=== PATIENT | female | born 1980 | race Caucasian/White ===

== ENCOUNTER 2017-11-03 10:41 | Emergency (ER) | payer MEDICARE, MEDICAID ==
--- OUTSIDE RECORDS SUMMARY | 2017-11-03 10:56 | XMS REPORT ---
:1980 External Reference #:[id number] Author Organization [facility] Address [address] [facility] [place] [address] [place] [address] Phone [phone] Care Team Providers Name Role Phone Jessika Klein MD Primary Care Physician Unavailable Payers Type Date Identification Numbers Payment Provider Subscriber Medicare Primary Policy Number: [id number] Medicare Aakashslime Martell PayID: [id number] [address] [place] [address] [facility] Policy Number: [id number] Medicaid Aakash Martell Group Name: 1 1 [address] PayID: [id number] [place] [address] Commercial Effective: Policy Number: [employer] Aakash Martell 2011 [id number] Medicaid Expires: 2013 PayID: [id number] [address] [address] [place] [address] Problems Date Description Provider Status Onset: 06/19/2011 Tobacco user Bela Villavicencio M.D. 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 Active Onset: 04/22/2012 Allergic rhinitis Gloria Griffiths M.D. Active Onset: 04/22/2012 Acne Gloria Griffiths M.D. Active Onset: 04/22/2012 Herpes simplex Gloria Griffiths M.D. Active Onset: 04/21/2014 Insomnia Rajesh Wood M.D. Active Onset: 04/21/2014 Posttraumatic stress disorder Rajesh Wood M.D. Active Onset: 08/04/2014 Attention deficit hyperactivity Rajesh Wood M.D. Active disorder Family History Date Family Member(s) Problem(s) Comments General non-contibutory Father non contributory Mother non contributory Social History Type Date Description Comments Marital Status Single ETOH Use Rarely consumes liquor ETOH Use 3 /yr Smoking Patient is a current smoker, smokes 1 1/2 ppd every day Recreational Drug Use Denies Drug Use Exercise Type/Frequency Exercises regularly Walks regularly General Hx Text 3 years of college Personal Habits Text vegetarian Allergies, Adverse Reactions, Alerts Date Description Reaction Status Severity Comments 06/19/2011 Erythromycin Rash active 06/19/2011 Bactrim Rash active 10/02/2011 Latex "red itch" active pt reported 07/02/2013 Azithromycin Urticaria, Malaise active 07/02/2013 Hydrocodone active 07/18/2015 Prednisone active Severe pain Medications Medication Date Status Form Strength Qnty SIG Indications Ordering Provider Modafinil 10/08 Active Tablets 200mg 30tab 1 po daily s Varn, N.P. Fexofenadine HCL 02/12 Active Tablets 180mg 30tab Take 1 s Tablet By Varn, Mouth N.P. Every Day TENS Unit Pads 09/04 Active 2"X 2" 60uni Apply to ts area prn Varn, pain. N.P. Gabapentin 04/23 Active Capsules 300mg 60cap Take One s Capsule By Varn, Mouth N.P. Twice A Day Fluconazole 09/28 Active Tablets 150mg 2tabs take 1 tablet by Varn, mouth, august N.P. repeat in 3 days as needed Azelastine HCL 07/17 Active Solution 0.1% 30ml 2 Teri (Nasal) inhalation Varn, s in each N.P. nostril twice daily Azelastine HCL 07/17 Active Solution 0.05% 6ml 1 drop in (Ophthalmic) each eye Varn, twice a N.P. day Multivitamin 07/17 Active Chewtabs 60uni 2 by mouth Teri Gummies Adult ts daily Varn, N.P. Montelukast 07/17 Active Tablets 10mg 30tab Take 1 s Tablet By Varn, Mouth N.P. Every Day Ibuprofen 03/03 Active Tablets 800mg 90tab 1 by mouth R68.84 s every 8 Varn, hours as N.P. needed for pain Denavir 03/03 Active Cream 1% 30.0u apply B00.2 nits three Varn, times N.P. daily as needed Up&Up Adult 01/10 Active Gummy 150un Chew Two Vitamin its Gummies Varn, Dietar Daily N.P. TENS Unit 01/06 Active 1unit dx code: s 723.1 Varn, m54.5 N.P. Nasonex 04/20 Active Suspension 50mcg/Act 1Mon 1 spray osiel each Varn, side every N.P. day Tretinoin 04/20 Active Cream 0.025% 20uni apply as ts directed Mupirocin 03/01 Active Ointment 2% 22gm apply once L08.9 daily to Varn, rash N.P. Tizanidine HCL 01/25 Active Tablets 4mg 30tab Take 1 s Tablet By Varn, Mouth N.P. Every 8 Hours as Needed Zolpidem 12/03 Active Tablets ER 6.25mg 30tab one by Tartrate s mouth at . [facility], bedtime as M.D. needed Mirena 07/15 Active IUD 20mcg/24HR 1unit implant s Varn, N.P. Klonopin Active Tablets 1mg Unknown Viibryd Active Tablets 40mg take 1 tab Unknown every in the morning after starter pack finished not taking Liothyronine Active Tablets 50mcg Unknown Sodium Tramadol HCL Active Tablets 50mg 90tab take 1 s tablet by Varn, mouth N.P. every 8 hours as needed for pain Valtrex Active Tablets 1gm 30tab Take 2 B00.89 s Tabs By Varn, Mouth And N.P. Repeat In 12 Hours as Needed Bupropion HCL ER 00/00 Active Tablets ER 300mg 1 by mouth F32.9 Unknown (XL) /0000 24HR every day Prazosin HCL 00 Active Capsules 1mg F32.9 Unknown /0000 Amphetamine-Dext 0000 Active Caps ER 30mg one by F90.0 Unknown roamphet ER /0000 24HR mouth every in the morning Amphetamine-Dext 00 Active Tablets 10mg 1 po daily F90.0 Unknown roamphetamine /0000 Cetirizine HCL 08/26 Hx Tablets 10mg 30tab 1 by mouth s every day Varn, - N.P. 10/08 Ensure Complete 02/12 Hx Liquid 30uni 1 daily in [facility] [employer] Shake ts addition Varn, - to usual N.P. 10/08 Fexofenadine HCL 11/02 Hx Tablets 180mg 30tab 1 by mouth s every day Varn, - N.P. 08/26 Sudafed 24 Hour 11/02 Hx Tablets ER 240mg 30tab one by 24HR s mouth Varn, - daily N.P. 10/08 TENS Unit Pad 07/17 Hx 4"X 6" 8unit apply 1 M46.1 Butterfly s pad to Varn, - Shape affected N.P. 09/04 area needed TENS Replacement 04/12 Hx 12uni Apply with Teri Pads ts TENS unit Varn, - and use N.P. 05 prn. Dx Code 723.1 Fexofenadine 03/03 Hx Tablets ER 180-240mg 30tab one by Teri HCL/Pseudoephedr 24HR s mouth Varn, ine HCL ER - daily N.P. 02/05 Fluconazole 12/02 Hx Tablets 150mg 2tabs one by [place] mouth august JYOTSNA Ahumada - repeat in 12/07 3 days needed Adderall 04/13 Hx Tablets 15mg 20tab 1 by mouth 314.01 s twice a SK. Wood, - day code b M.D. 01/16 Tizanidine HCL 01/25 Hx Tablets 4mg 30tab take 1 724.5 s tablet by Varn, - mouth N.P. 01/25 every hours as needed Adderall XR 01/25 Hx Caps ER 30mg 31cap 1 by mouth 314.01 24HR s every day Varn, - N.P. 04/13 Tizanidine HCL 01/03 Hx Tablets 4mg 30tab take 1 724.5 s tablet by Varn, - mouth N.P. 01/10 every hours as needed Adderall XR 01/03 Hx Caps ER 25mg 30cap One po q 314.01 24HR s am Vartanya, - N.P. 01/25 Zovirax 11/13 Hx Cream 5% 5gm use as directed Gloria Griffiths M.D. 10/08 Gentamicin 07/22 Hx Cream 0.1% 15gm Apply 1 706.1 applicatio Gloria Griffiths M.D. 08/28 topically to affected area twice daily for acne treatment Paragard 06/24 Hx IUD T380a Gloria Intrauterine Neal Griffiths M.D. Contraceptive 08/28 T380a /2012 Retin-A 04/22 Hx Cream 0.025% 45gm Apply 1 706.1 applicatio Gloria Griffiths M.D. 07/22 topically to affected area daily in the evening to face for acne Nasonex 03/31 Hx Suspension 50mcg/Act 1unit 2 sprays 477.9 s to each Aye - nostril M.D. 05/26 Vitamin D3 01/19 Hx Capsules 1000Unit 30cap Take 1 s tablet Aye, - daily M.D. 01/19 Vitamin D 01/19 Hx Capsules 96126Qcap 6caps take 1 tablet Gloria Griffiths weekly for M.D. 04/22 6 Flunisolide 01/19 Hx Solution 29mcg/Act 25ml Inhale 2 (0.025%) sprays Gloria Griffiths into M.D. 03/31 nostril /2011 twice daily when needed for hay fever Vitamin D3 01/14 Hx Capsules 1000Unit 30cap Take 1 s tablet Aye, - daily M.D. 01/15 Fluticasone 01/08 Hx Suspension 50mcg/Act 16gm inhale 2 Gloria sprays Aye, - into M.D. 01/19 nostril times a day Loratadine 01/08 Hx Tablets 10mg 30tab 1 po qd 477.9 Gloria s Gloria Griffiths M.D. 01/14 Bactroban 01/02 Hx Ointment 2% 22gm apply 1 709.9 applicatio Aye, - n M.D. 02/19 topically to affected area 3 times a day for impetigo Fexofenadine HCL 01/02 Hx Tablets 60mg 30tab Take 1 477.9 s tablet Aye, - daily when M.D. 04/01 needed allergies Nicotine 06/18 Hx Lozenges 2mg 120un as needed 305.1 Bela Polacrilex its for Villavicencio, - cravings M.D. 05/26 Multivitamins Hx Tablets 30tab 1 po qd Unknown /0000 s - 04/20 Vyvanse Hx Capsules 60mg 30cap 1 po qd Unknown /0000 s - 01/25 Ambien CR Hx Tablets ER 12.5mg 30tab 1 qhs prn Unknown /0000 s - 12/03 Domenica-D Hx 1 po qd 477.9 Unknown /0000 - 01/02 Naproxen Hx Tablets 500mg 60tab 1 po bid Unknown /0000 s prn - 04/22 Denavir Hx Cream 1% 15gm apply tid Gloria prn Gloria Griffiths M.D. 11/13 Nasonex Hx Suspension 50mcg/Act 1unit 2 sprays Gloria / s to each Aye, - nostril M.D. 01/08 Strattera Hx Capsules 40mg 30cap 2 tab po Unknown /0000 s every am - 04/22 Valtrex 00/00 Hx Tablets 500mg 24tab Take 1 054.79 Gloria /0000 s tablet Aye, - twice M.D. 02/19 daily for 3 days as needed Spironolactone 00 Hx Tablets 25mg 60tab Take 2 Unknown /0000 s tablets - daily 06/24 Domenica-D / Hx 30uni 1 po qd 477.9 Gloria /0000 ts Aye, - M.D. 08/28 Klonopin Hx Tablets 0.5mg 31tab 1 by mouth Teri /0000 [facility], - at bedtime N.P. 04/13 as needed Zantac Hx Tablets 150mg 60tab 1 po bid Unknown /0000 s - 07/15 Minocycline HCL 00 Hx Capsules 100mg 60cap take two Unknown /0000 s daily - 07/15 Amoxicillin Hx Capsules 500mg 12cap tid Unknown /0000 s - 01/16 Ibuprofen Hx Capsules 200mg as needed Unknown /0000 - 01/16 Viibryd Hx Tablets 20mg 2 by mouth Unknown /0000 every day - 07/15 Levocetirizine Hx Tablets 5mg Unknown Dihydrochloride /0000 - 03/03 Vyvanse 00 Hx Capsules 40mg 1 by mouth Unknown /0000 each - morning 10/08 Modafinil 00 Hx Tablets 100mg 1 by mouth Unknown /0000 every day - 10/08 Montelukast 00 Hx Tablets 10mg 1 by mouth Unknown Sodium /0000 every day - 07/15 Immunizations CPT Code Status Date Vaccine Lot # [id number] Given 03/03/2015 Tdap - Tetanus/Diptheria/Acellular Pertussis [id number] Given 01/16/2015 Influenza Virus Vaccine, Quadrivalent, Split, [id number] Preservative Free [id number] Given 01/25/2014 Influenza Virus Vaccine, Quadrivalent, Split, [id number] Preservative Free 26137 Given 02/19/2013 Flu Vaccine Split Virus Preservative Free For [id number] Indiv 3Yr Older [id number] Given 01/03/2012 Fluzone Vaccine [id number] 71991 Given 02/18/2011 Influenza Virus 3Yrs & Over [id number] Given 06/18/1985 Tdap - Tetanus/Diptheria/Acellular Pertussis Vital Signs Date Vital Result Comment 10/08/2017 Height 64 inches 5'4" Weight 124.50 lb Heart Rate 82 /min BP Systolic 118 mmHg BP Diastolic 82 mmHg O2 % BldC Oximetry 100 % BMI (Body Mass Index) 21.4 kg/m2 07/16/2016 Height 64 inches 5'4" Weight 126.00 lb Heart Rate 101 /min BP Systolic Sitting 110 mmHg BP Diastolic Sitting 60 mmHg Respiratory Rate 18 /min Pain Level 5 All over O2 % BldC Oximetry 97 % BMI (Body Mass Index) 21.6 kg/m2 01/26/2016 Weight 119.00 lb Heart Rate 90 /min BP Systolic Sitting 118 mmHg BP Diastolic Sitting 74 mmHg Respiratory Rate 16 /min Body Temperature 97.0 F O2 % BldC Oximetry 98 % 01/16/2016 Height 64 inches 5'4" Weight 122.25 lb Heart Rate 54 /min BP Systolic Sitting 128 mmHg BP Diastolic Sitting 76 mmHg Respiratory Rate 16 /min O2 % BldC Oximetry 98 % BMI (Body Mass Index) 21.0 kg/m2 08/18/2015 Height 63.25 inches 5'3.25" Weight 126.00 lb Heart Rate 96 /min BP Systolic Sitting 130 mmHg BP Diastolic Sitting 84 mmHg Respiratory Rate 15 /min Body Temperature 98.0 F O2 % BldC Oximetry 97 % BMI (Body Mass Index) 22.1 kg/m2 07/18/2015 Height 63.25 inches 5'3.25" Weight 123.50 lb Heart Rate 98 /min BP Systolic Sitting 144 mmHg BP Diastolic Sitting 98 mmHg Body Temperature 98.2 F O2 % BldC Oximetry 98 % BMI (Body Mass Index) 21.7 kg/m2 03/03/2015 Weight 128.00 lb Heart Rate 109 /min BP Systolic Sitting 118 mmHg BP Diastolic Sitting 70 mmHg Body Temperature 96.9 F O2 % BldC Oximetry 96 % 02/09/2015 Height 64 inches 5'4" Weight 133.00 lb Heart Rate 82 /min BP Systolic Sitting 126 mmHg BP Diastolic Sitting 72 mmHg Respiratory Rate 14 /min O2 % BldC Oximetry 95 % BMI (Body Mass Index) 22.8 kg/m2 01/16/2015 Height 64 inches 5'4" Weight 133.50 lb Heart Rate 96 /min BP Systolic 133 mmHg BP Diastolic 92 mmHg Body Temperature 98.6 F O2 % BldC Oximetry 100 % BMI (Body Mass Index) 22.9 kg/m2 08/04/2014 Height 64 inches 5'4" Weight 136.00 lb Heart Rate 116 /min BP Systolic Sitting 120 mmHg BP Diastolic Sitting 60 mmHg Respiratory Rate 18 /min O2 % BldC Oximetry 98 % BMI (Body Mass Index) 23.3 kg/m2 05/16/2014 Weight 138.00 lb Heart Rate 86 /min BP Systolic Sitting 100 mmHg BP Diastolic Sitting 56 mmHg Body Temperature 97.2 F 04/21/2014 Height 64 inches 5'4" Weight 133.00 lb Heart Rate 99 /min BP Systolic Sitting 127 mmHg BP Diastolic Sitting 58 mmHg Respiratory Rate 18 /min O2 % BldC Oximetry 98 % BMI (Body Mass Index) 22.8 kg/m2 Neck Circumference in inches 12 04/13/2014 Height 63.5 inches 5'3.50" Weight 133.00 lb Heart Rate 72 /min BP Systolic Sitting 118 mmHg BP Diastolic Sitting 70 mmHg Body Temperature 97.0 F BMI (Body Mass Index) 23.2 kg/m2 03/30/2014 Height 63.5 inches 5'3.50" Weight 133.50 lb Heart Rate 68 /min BP Systolic Sitting 102 mmHg BP Diastolic Sitting 60 mmHg Body Temperature 98.1 F O2 % BldC Oximetry 92 % BMI (Body Mass Index) 23.3 kg/m2 03/01/2014 Height 63.75 inches 5'3.75" Weight 135.50 lb Heart Rate 92 /min BP Systolic Sitting 114 mmHg BP Diastolic Sitting 68 mmHg Body Temperature 98.4 F O2 % BldC Oximetry 98 % BMI (Body Mass Index) 23.4 kg/m2 02/15/2014 Weight 137.00 lb Heart Rate 76 /min BP Systolic Sitting 108 mmHg BP Diastolic Sitting 60 mmHg Body Temperature 98.4 F O2 % BldC Oximetry 98 % 01/25/2014 Weight 137.00 lb Heart Rate 82 /min BP Systolic Sitting 130 mmHg BP Diastolic Sitting 74 mmHg 01/03/2014 Weight 137.00 lb Heart Rate 78 /min BP Systolic Sitting 120 mmHg BP Diastolic Sitting 76 mmHg Body Temperature 97.2 F 12/03/2013 Weight 134.00 lb Heart Rate 78 /min BP Systolic Sitting 116 mmHg BP Diastolic Sitting 78 mmHg Body Temperature 97.9 F 05/26/2013 Weight 138.50 lb Heart Rate 80 /min BP Systolic 132 mmHg BP Diastolic 78 mmHg 02/19/2013 Weight 133.50 lb Heart Rate 88 /min BP Systolic Sitting 120 mmHg BP Diastolic Sitting 76 mmHg 08/28/2012 Weight 131.00 lb Heart Rate 90 /min BP Systolic Sitting 132 mmHg BP Diastolic Sitting 90 mmHg 07/22/2012 Height 63.50 inches 5'3.50" Weight 129.00 lb Heart Rate 94 /min BP Systolic Sitting 104 mmHg BP Diastolic Sitting 68 mmHg BMI (Body Mass Index) 22.5 kg/m2 06/24/2012 Height 63.50 inches 5'3.50" Weight 120.25 lb Heart Rate 90 /min BP Systolic Sitting 120 mmHg BP Diastolic Sitting 76 mmHg BMI (Body Mass Index) 21.0 kg/m2 04/22/2012 Height 63.50 inches 5'3.50" Weight 120.00 lb Heart Rate 88 /min BP Systolic Sitting 120 mmHg BP Diastolic Sitting 80 mmHg BMI (Body Mass Index) 20.9 kg/m2 03/18/2012 Height 63.50 inches 5'3.50" Weight 121.00 lb Heart Rate 68 /min BP Systolic Sitting 114 mmHg BP Diastolic Sitting 60 mmHg BMI (Body Mass Index) 21.1 kg/m2 01/03/2012 Height 63.50 inches 5'3.50" Weight 123.00 lb Heart Rate 64 /min BP Systolic Sitting 120 mmHg BP Diastolic Sitting 76 mmHg BMI (Body Mass Index) 21.4 kg/m2 10/02/2011 Height 63.50 inches 5'3.50" Weight 122.00 lb Heart Rate 66 /min BP Systolic Sitting 112 mmHg BP Diastolic Sitting 60 mmHg BMI (Body Mass Index) 21.3 kg/m2 06/19/2011 Height 63.50 inches 5'3.50" Weight 125.00 lb Heart Rate 64 /min BP Systolic Sitting 112 mmHg L BP Diastolic Sitting 68 mmHg L BMI (Body Mass Index) 21.8 kg/m2 Results Test Date Test Result H/L Range Note Laboratory test 08/18/2015 Cytology SEE RESULT BELOW 1 finding GC/Chlamydia 08/18/2015 Chlamydia Negative Negative Amplified Rna trachomatis Rna Neisseria gonorrhoeae (GC) Rna Negative Negative Laboratory test finding 08/18/2015 HPV Rna Ww/Reflex Negative Negative 2 Genotype CBC Auto Diff 04/02/2012 White Blood Count 8.6 10^3/uL 4.8-10.8 Red Blood Count 4.06 10^6/uL 4.0-5.4 Hemoglobin 12.4 g/dL 12.0-16.0 Hematocrit 37 % 35-47 Mean Corpuscular Volume 91 fL 80-97 Mean Corpuscular Hemoglobin 31 pg 27-31 Mean Corpuscular HGB Conc 33 g/dL 31-36 Red Cell Distribution Width 13 % 10.5-15 Platelet Count 241 10^3/uL 150-450 Mean Platelet Volume 9 um3 7.4-10.4 Abs Neutrophils 5.1 10^3/uL 1.5-7.7 Abs Lymphocytes 2.5 10^3/uL 1.0-4.8 Abs Monocytes 0.5 10^3/uL 0-0.8 Abs Eosinophils 0.3 10^3/uL 0-0.6 Abs Basophils 0.1 10^3/uL 0-0.2 Abs Nucleated RBC 0 10^3/uL Granulocyte % 59.6 % 38-83 Lymphocyte % 29.3 % 25-47 Monocyte % 6.2 % 1-9 Eosinophil % 3.9 % 0-6 Basophil % 1.0 % 0-2 Nucleated Red Blood Cells % 0 Laboratory test finding 04/02/2012 Ferritin 13 ng/mL 11-307 Iron & Iron Binding Capacity 04/02/2012 Iron 127 UG/ML 28-170 Unsaturated Iron Binding 255 g/dL Total Iron Binding Capacity 382 g/dL 250-450 Transferrin 273.1 % Iron Saturation 33 % 15-55 Laboratory test finding 04/02/2012 Beta HCG Quantitative < 2.1 MIU/ML 0.0 -5.0 3 Laboratory test finding 01/03/2012 TSH 0.58 MIU/ML 0.34-5.60 CBC Auto Diff 01/03/2012 White Blood Count 8.9 CUMM 4.8-10.8 Red Cell Count 3.86 CUMM Low 4.2-5.4 Hemoglobin 12.1 g/dL 12.0-16.0 Hematocrit 36 % 35-47 Mean Corpuscular Volume 92 um3 79-97 Mean Corpuscular Hemoglob 31 pg 27-31 Mean Corpuscular HGB Cone 34 g/dL 32-36 Redcell Distribution WDTH 12 % 10.5-15 Platelet Count 244 CUMM 150-450 Mean Platelet Volume 8.9 um3 7.4-10.4 Gran % 74.1 % 38-83 Lymph % 17.8 % Low 20-45 Mononuclear % 4.5 % 1-9 Eosinophil % 2.9 % 0-6 Basophil % 0.7 % 0-2 Abs Lymphs 1.6 1.0-4.8 Abs Mononuclear 0.4 0-0.8 Absolute Neutrophil Count 6.6 1.5-7.7 Abs Eosinophils 0.3 0-0.6 Abs Basophils 0.1 0-0.2 Vitamin D, 25 Hydroxy 01/03/2012 25-Hydroxy Vitamin D2 6.9 ng/mL () 25-Hydroxy Vitamin D3 22 ng/mL () 25-Hydroxy Vitamin D Total 29 ng/mL () 4 1 SEE RESULT BELOW Name: AAKASH MARTELL V : [address]: Teri Grimm NP Acct: [id number] Unit: [id number] AGE: 35 Location: [facility] Re08/18/15 SEX: F Status: REG REF SPEC: [id number] MARI: 08/18/15-16[address] [facility] DR: Teri Grimm NP REQ: [id number] RECD: 08/18/15 STATUS: SOUT _ ORDERED: IMAGE ANALYSIS, HPV/Thin Prep, HPV 16/18 GENE COMMENTS: [id number] FINAL DIAGNOSIS Negative for Intraepithelial lesion or Malignancy A. Ectocervical/Endocervical Specimen Adequacy: Satisfactory of evaluation Transformation zone component identified Patient Information: HPV: High risk HPV RNA testing regardless of pap results. HPV 16/18 Genotype Reflex Actual Specimen Date: 08/18/15 LMP If Unknown: 2 weeks ago spotting ?: N Post Menopausal?: N Hysterectomy?: N Previous Abnormal Pap Smears?:Y If Yes, enter Diagnosis: 2006, patient unsure what the abnormality was. Date Time Test Result Flag (u) Normal Range 08/18/15 1640 HPV RNA RFLX GE Negative Negative The high-risk HPV types detected by the assay include: 16, 18, 31, 33, 35, 39, 45, 51, 52, 56, 58, 59, 66, and 68. Signed (signature on file) TERA Taylor(ASCP) 08/20 1321 This Pap test was evaluated with the assistance of the Results [employer] Test Imaging System. Due to cytologic findings at the emblem maker microscope, comprehensive manual rescreening by a Addictions Counselor may be required. The Pap Smear is a screening test designed to aid in the detection of premalignant and malignant conditions of the uterine cervix. It is not a diagnostic procedure and should not be used as the sole means of detecting cervical cancer. Both false- positive and false- negative reports do occur. Depending on your risk status, a Pap smear should be obtained and evaluated every 1-3 years. END OF REPORT * ML=Testing performed at Main Lab DEPARTMENT OF PATHOLOGY, [address] [place] [address] RUN DATE: 08/21/15 [facility] LAB LIVE PAGE 1 Patient: AAKASH MARTELL V [id number] (Continued) Guero Gibson M.D. Director [facility] # [id number] 2 The high-risk HPV types detected by the assay include: 16, 18, 31, 33, 35, 39, 45, 51, 52, 56, 58, 59, 66, and 68. 3 Males: < 5.0 miu/ml Non females < 5.0 miu/ml Approx gestational age approx HCG range 0-1 week < 5.0-50 1-2 weeks 50-500 2-3 weeks 100-5000 3-4 weeks 500-10,000 1-2 months 10,000-200,000 2-3 months 15,000-100,000 Please note: The intended use of this assay is the quantitative determination of HCG in human serum or plasma for the early detection of . These assays should not be used to diagnose any condition unrelated to . If an HCG level is inconsistent with, or unsupported by, clinical evidence, results should be confirmed by an alternate HCG method. 4 -- REFERENCE VALUE -- 25-HYDROXY D TOTAL (D2+D3) Optimum levels in the normal population are 25-80 Test Performed by: [address] [address] Group Home Counselor: Irvin Storey III, M.D. Procedures Description No Information Encounters Type Date Location Provider CPT E/M Dx Office Visit 07/16/2016 Pul[facility] [address] G47.00 3:30p [facility] F43.12 F90.1 Office Visit 01/26/2016 2:40p [facility] Teri Grimm, N.P. 00925 F43.12 - [place] F90.1 G47.00 Office Visit 01/16/2016 3:30p [facility] [place] [address] G47.00 [facility] F43.12 Office Visit 08/18/2015 4:00p [facility] Teri Grimm, N.P. 16716 Z01.419 - [place] Office Visit 07/18/2015 3:20p [facility] Teri Grimm, N.P. 72583 Z00.00 - [place] F90.1 J30.9 F17.210 F32.9 M54.2 M25.519 M46.1 Office Visit 03/03/2015 2:00p [facility] Teri Grimm, N.P. 05612 B00.2 - [place] Z23 M54.2 M46.1 J30.9 M26.62 Office Visit 02/09/2015 3:30p [facility] Rajesh Wood, 21250 G47.00 [facility] Carole F43.12 Office Visit 01/16/2015 2:20p [facility] - Teri Grimm, N.P. 80898 Z23 [place] M54.2 M54.5 Office Visit 08/04/2014 3:45p [facility] Rajesh Wood, 66295 314.01 [facility] M.D. 311 780.52 309.81 Office Visit 05/16/2014 3:00p [facility] Teri Grimm, N.P. 32432 314.01 - [place] 311 Office Visit 04/21/2014 3:30p [facility] Rajesh Wood, 61591 780.52 [facility] M.D. 309.81 Office Visit 04/13/2014 3:00p [facility] Teri Grimm, N.P. 01685 314.01 - [place] Office Visit 03/30/2014 1:00p [facility] Teri Grimm, N.P. 17214 314.01 - [place] 309.81 Office Visit 03/01/2014 1:00p [facility] Teri Grimm, N.P. 10648 686.9 - [place] 314.01 Office Visit 02/15/2014 4:00p [facility] Teri Grimm, N.P. 28794 314.01 - [place] Office Visit 01/25/2014 2:40p [facility] Teri Grimm, N.P. 84540 314.01 - [place] V04.81 Office Visit 01/03/2014 4:20p [facility] Teri Grimm, N.P. 54443 314.01 - [place] 780.52 723.1 724.5 719.43 Office Visit 12/03/2013 4:00p [facility] Teri Grimm, N.P. 91993 780.52 - [place] 314.01 Office Visit 10/14/2013 11:08a [facility] Rajesh Wood, 82632 780.52 M.D. 309.81 Office Visit 07/15/2013 3:41p [facility] Rajesh Wood, 28559 780.52 M.D. 309.81 Office Visit 05/26/2013 3:00p [facility] - Gloria Griffiths M.D. 30126 375.15 [place] 369.20 719.47 728.5 Office Visit 04/01/2013 8:59a [facility] Rajesh Wood, 91339 780.52 M.D. 309.81 Office Visit 02/19/2013 3:00p [facility] - Gloria Griffiths M.D. 97678 728.5 [place] 724.5 726.19 V04.81 Office Visit 11/19/2012 8:25a [facility] Rajesh PALMATiana Wood, 91057 780.52 M.D. 327.23 Office Visit 08/28/2012 3:40p [facility] - Gloria Griffiths M.D. 66794 706.1 [place] 307.49 305.1 V25.09 Office Visit 07/22/2012 3:40p [facility] - Gloria Griffiths M.D. 55602 706.1 [place] 307.49 Office Visit 06/24/2012 3:40p [facility] - Gloria Griffiths M.D. 89270 626.2 [place] V25.09 706.1 307.49 Office Visit 04/22/2012 2:40p [facility] - Gloria Griffiths M.D. 60491 477.9 [place] 626.2 706.1 054.79 Office Visit 03/18/2012 1:40p [facility] - Gloria Griffiths M.D. 12971 477.9 [place] 626.2 Office Visit 01/03/2012 2:40p [facility] - Gloria Griffiths M.D. [id number] 709.9 [place] 305.1 626.2 [id number] 477.9 Office Visit 10/02/2011 2:20p [facility] - Gloria Griffiths M.D. [id number] 626.2 [place] 305.1 Office Visit 06/19/2011 1:00p [facility] - Bela Villavicencio M.D. [id number] 311 [place] 626.2 305.1 Plan of Care 10/08/2017 - Teri Grimm, N.P.Z00.00 Encntr for general adult medical exam w/ o abnormal findingsComments:For your routine health maintenance: I would encourage you to start a regular exercise program. YourTetanus immunization is up to date. You received this in 2014. It is good for 10 years unless you have a major injury, then it is good for 5 years. You had a pap smear in 2016. It was normal and your screening for HPV was negative. You will need a repeat pap smear in 2019. I have given you a health care proxy and advanced directive forms to fill out and return to our office. These are important for us to have on file so we may know what your wishes are if you are unable to express them yourself.J30.9 Allergic rhinitis, unspecifiedComments:For your allergies: Continue with your current management. If you should feel your symptoms are not being well controlled, please give the office a call.F17.210 Nicotine dependence , cigarettes, uncomplicatedComments:It is imperative that you quit smoking. There are several medications that can help and numerous organizations that can offer you support. [facility] has a quit line you may call at 8 [phone]- [phone]. 

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
[2017-11-03 12:53] VITALS: BP 108/64
== END 2017-11-03 12:32 | disposition home or self-care (01) ==
LOC: ED 10:41
DX: S30.860A Insect bite (nonvenomous) of lower back and pelvis, initial encounter (principal); W57.XXXA Bitten or stung by nonvenomous insect and other nonvenomous arthropods, initial encounter; Y92.9 Unspecified place or not applicable; K08.89 Other specified disorders of teeth and supporting structures; F17.200 Nicotine dependence, unspecified, uncomplicated; Z88.3 Allergy status to other anti-infective agents; Z88.2 Allergy status to sulfonamides
CPT/HCPCS: 99282

== ENCOUNTER 2019-04-11 16:09 | Emergency (ER) | payer MEDICARE, MEDICAID ==
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
[2019-04-11 17:10] LABS: ABS Basophils 0.1 10^3/ul (0-0.2); ABS Eosinophils 0.4 10^3/ul (0-0.6); ABS Lymphocytes 2.1 10^3/ul (1.0-4.8); ABS Monocytes 0.6 10^3/ul (0-0.8); ABS Neutrophils 9.9 10^3/ul (1.5-7.7); Eosinophil % 2.7 %; Hematocrit 41 % (35-47); Hemoglobin 14.2 g/dL (12.0-16.0); Lymphocyte % 16.2 %; Mean Corpuscular HGB Conc 34 g/dL (31-36); Mean Corpuscular Hemoglobin 32 pg (27-31); Mean Corpuscular Volume 92 fL (80-97); Mean Platelet Volume 8.4 fL (7.4-10.4); Platelet Count 305 10^3/uL (150-450); Red Blood Count 4.49 10^6 /uL (3.70-4.87); Red Cell Distribution Width 13 % (10-15)
[2019-04-11 17:26] LABS: Anion Gap 7 mmol/L (2-11); BUN/Creatinine Ratio 13.6 (8-20); Blood Urea Nitrogen 11 mg/dL (6-24); CO2 Carbon Dioxide 26 mmol/L (22-32); Chloride 101 mmol/L (101-111); EGFR African American 96.3 (>60); EGFR Non-African American 79.6 (>60); Glucose 94 mg/dL (70-100); Sodium 134 mmol/L (135-145)
[2019-04-11] MEDS ORDERED: Iohexol 300* (CONTRAST) 10 ML SDV IV ONE (17:54)
[2019-04-11 18:07] LABS: HCG Pregnancy < 0.60 mIU/mL
[2019-04-11] MEDS ORDERED: Clindamycin 600 MG/D5W BAG(*) 600 MG/50 ML BAG IV ONE (18:35)
--- NOTE | 2019-04-11 19:00 | ED ---
Progress - Progress Note Progress Note: The patient is a sign-out from Dr. Dai Pearson MD, to Dr. Robert Razo MD, at change of shift at 1900 on 04/11/2019, pending Maxillofacial CT and disposition. Maxillofacial CT impression reveals - 1. There is soft tissue swelling and subcutaneous fat stranding of the right face including the jaw consistent with cellulitis without visible soft tissue abscess. 2. There are multiple dental cavities and there is periapical lucency involving the right maxillary 1st molar tooth and 2nd premolar tooth as well as the left mandibular 2nd molar tooth and left maxillary 2nd premolar tooth consistent with multifocal periodontal disease/periodontal abscess. Dental block performed using 0.5% Bupivacaine with Epinephrine. - Results/Orders Results/Orders: Maxillofacial CT Impression: 1. There is soft tissue swelling and subcutaneous fat stranding of the right face including the jaw consistent with cellulitis without visible soft tissue abscess. 2. There are multiple dental cavities and there is periapical lucency involving the right maxillary 1st molar tooth and 2nd premolar tooth as well as the left mandibular 2nd molar tooth and left maxillary 2nd premolar tooth consistent with multifocal periodontal disease/ periodontal abscess. ED physician has reviewed this imaging report. Course/Dx - Course Course Of Treatment: The patient is a sign-out from Dr. Dai Pearson MD, to Dr. Robert Razo MD, at change of shift at 1900 on 04/11/2019, pending Maxillofacial CT and disposition. Maxillofacial CT impression reveals soft tissue swelling and subcutaneous fat stranding of the right face including the jaw consistent with cellulitis without visible soft tissue abscess, multiple dental cavities and there is periapical lucency involving the right maxillary 1st molar tooth and 2nd premolar tooth as well as the left mandibular 2nd molar tooth and left maxillary 2nd premolar tooth consistent with multifocal periodontal disease/periodontal abscess. Dental block performed using 0.5% Bupivacaine with Epinephrine. Patient safe for discharge. Patient understands and agrees with plan. Rx for Clindamycin and [place]. Dx of dental abscess. - Diagnoses Provider Diagnoses: Pain, dental, Dental abscess Discharge ED - Sign-Out/Discharge Documenting (check all that apply): Patient Departure - Patient will be discharged home., Receiving Sign-Out Receiving patient FROM: Dai Pearson - Patient is a sign-out from Dr. Dai Pearson MD, at 1900 on 04/11/2019, pending Maxillofacial CT and disposition. - Discharge Plan Condition: Stable Disposition: HOME Prescriptions: Clindamycin HCl 300 mg PO TID #30 HYDROcodone/ACETAMIN 5-325 MG* [[place] 5-325 TAB*] 1 tab PO Q4H PRN #10 tab MDD 6 PRN Reason: Pain - Severe Patient Education Materials: Dental Abscess (ED) Referrals: Teri Grimm RETAIL PHARMACIST [Nurse Practitioner] - 3 Days Additional Instructions: You were seen in the emergency department for pain. Please take penicillin 4 times a day for one week Please follow up with your primary care doctor in next 2-3 days and return to emergency department for inability to drink, difficulty opening your mouth, worsening or concerning symptoms. It was a pleasure taking care of you today. - Billing Disposition and Condition Condition: STABLE Disposition: Home - Attestation Statements Document Initiated by Mundo: Yes Documenting Scribe: Laura Gay Provider For Whom Mundo is Documenting (Include Credential): Dr. Robert Razo MD Scribe Attestation: Laura Augustine scribed for Dr. Robert Razo MD on 04/12/19 at 0149. Scribe Documentation Reviewed: Yes Provider Attestation: The documentation as recorded by the Laura nuñez accurately reflects the service I personally performed and the decisions made by me, Dr. Robert Razo MD Status of Scribe Document: Viewed Procedures - Procedure Summary Procedure Summary: Dental block performed using 0.5% Bupivacaine with Epinephrine. - Sedation Patient Received Moderate/Deep Sedation with Procedure: No
[2019-04-11] MEDS ORDERED: Bupivacaine 0.5% W/EPI SDV* 30 ML VIAL INJ ONE (21:19)
[2019-04-11] MEDS ORDERED: Clindamycin CAP* 150 MG PO ONE (21:33)
[2019-04-11 22:36] VITALS: BP 127/64
== END 2019-04-11 22:30 | disposition home or self-care (01) ==
LOC: ED 16:09
DX: K04.7 Periapical abscess without sinus (principal); F41.9 Anxiety disorder, unspecified; F32.9 Major depressive disorder, single episode, unspecified; F43.10 Post-traumatic stress disorder, unspecified; Z88.1 Allergy status to other antibiotic agents; Z88.2 Allergy status to sulfonamides; Z91.040 Latex allergy status
CPT/HCPCS: 36415; 70487; 80048; 84702; 85025; 96365; 96372; 99283; A9270-GY; Q9967